=== PATIENT | male | born 2005 | race Caucasian/White ===

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

== ENCOUNTER 2023-02-06 16:57 | Emergency (ER) | payer OTHER ==
[2023-02-06] MEDS ORDERED: Boostrix 0.5 ML (Tdap) VIAL (>/=7 yrs of age) ONE (17:13)
[2023-02-06] MEDS ORDERED: Acetaminophen 500 MG TAB ONE (17:57)
[2023-02-06] MEDS ORDERED: Ibuprofen 800 MG TAB ONE (17:57)
[2023-02-06] MEDS ORDERED: Bacitracin 1 PK ONE (17:57)
== END 2023-02-06 18:10 | disposition home or self-care (01) ==
LOC: MADERS 16:57
DX: S81.812A Laceration without foreign body, left lower leg, initial encounter (principal); F17.210 Nicotine dependence, cigarettes, uncomplicated; W26.8XXA Contact with other sharp object(s), not elsewhere classified, initial encounter; Y92.61 Building [any] under construction as the place of occurrence of the external cause; Z23 Encounter for immunization
CPT/HCPCS: 90471; 90715

== ENCOUNTER 2024-04-21 02:05 | Emergency (ER) | payer OTHER ==
[2024-04-21] MEDS ORDERED: Ondansetron ODT 4 MG TAB ONE ×2 (02:27→02:29)
== END 2024-04-21 03:08 | disposition home or self-care (01) ==
LOC: MADERS 02:05
DX: R11.2 Nausea with vomiting, unspecified (principal); F17.290 Nicotine dependence, other tobacco product, uncomplicated
CPT/HCPCS: 99283; Q0162

== ENCOUNTER 2024-12-09 15:19 | Emergency (ER) | payer BC, OTHER ==
[2024-12-09] MEDS ORDERED: Ketorolac Tromethamine 60 MG/2 ML VIAL ONE (15:56)
[2024-12-09] MEDS ORDERED: Lidocaine 4% Patch ONE (15:56)
== END 2024-12-09 17:23 | disposition home or self-care (01) ==
LOC: MADERS 15:19
DX: M62.830 Muscle spasm of back (principal); F17.290 Nicotine dependence, other tobacco product, uncomplicated; Z55.6 Problems related to health literacy
CPT/HCPCS: 96372; 99283; J1885